=== PATIENT | male | born 1985 | race Caucasian/White ===

== ENCOUNTER 2018-11-07 07:14 | Outpatient (CLI) | payer BC ==
--- NOTE | 2018-11-07 09:38 | ULT ---
RENAL ULTRASOUND: HISTORY: Pain. COMPARISON: None. TECHNIQUE: Sagittal and transverse imaging of the kidneys is performed. FINDINGS: Right kidney: Normal cortical echotexture. No hydronephrosis. The right kidney measures 12 x 6.6 x 5.8 cm. Left kidney: Normal cortical echotexture. No hydronephrosis. The left kidney measures 6.3 x 6 x 11 .4 cm. There is an echogenic focus in the cortex measuring approximately 0.6 cm. Intraparenchymal c alcification is suspected. Decompression of the urinary bladder limits evaluation. IMPRESSION: No hydronephrosis. POS: [facility]
== END 2018-11-07 07:15 | disposition home or self-care (01) ==
LOC: SCSULT 07:14
PROVIDERS: ATTEND Family Medicine
DX: R10.9 Unspecified abdominal pain (principal)
CPT/HCPCS: 76770